=== PATIENT | female | born 1965 | race Caucasian/White ===

== ENCOUNTER 2018-01-19 18:26 | Emergency (ER) | payer OTHER ==
[2018-01-19 20:02] LABS: Urine Blood 1+ (NEG); Urine Glucose NEGATIVE (NEG); Urine Protein 2+ (NEG); Urine Specific Gravity 1.025 (1.005-1.030)
[2018-01-19 20:03] LABS: Absolute Lymphocytes (CBC) 1.1 K/uL (0.7-4.9); Absolute Monocytes 0.8 K/uL (0.1-1.3); Absolute Neutrophil 6.9 K/uL (1.8-8.0); Basophils % 0.3 % (0-1.3); Eosinophils % 0.5 % (0-4.4); Hematocrit 36.2 % (36.0-45.0); Lymphocytes % 12.8 % (15.3-44.8); MCH 26.6 pg (27.0-35.0); MCV 81.5 fL (80-100); MPV 8.3 fL (7.6-11.3); Monocytes % 8.8 % (3.3-12.3); RBC Red Blood Cell Count 4.45 M/uL (3.86-4.86)
[2018-01-19] MEDS ORDERED: ONDANSETRON 4 MG/2 ML VIAL ONE (20:04)
[2018-01-19] MEDS ORDERED: NA CHLORIDE 0.9% 1,000 ML ONE (20:04)
[2018-01-19] MEDS ORDERED: MORPHINE 4 MG/ML SYR ONE (20:04)
[2018-01-19 20:21] LABS: Urine Bacteria <20 /HPF (<20); Urine Culture Reflex Order REFLEXED
[2018-01-19 20:22] LABS: Albumin 3.1 g/dL (3.4-5.0); Bilirubin Direct 0.1 mg/dL (0-0.2); Bilirubin Total 0.3 mg/dL (0.2-1.0); Potassium 4.1 mmol/L (3.5-5.1); Protein, Total 7.3 g/dL (6.4-8.2)
--- NOTE | 2018-01-19 20:58 | RAD REPORT ---
EXAM DESCRIPTION: CT - Abdomen Pelvis W Contrast - 01/19/2018 8:51 pm CLINICAL HISTORY: Abdominal pain/dysuria COMPARISON: none. TECHNIQUE: Computed axial tomography of the abdomen pelvis was obtained. 100 cc Isovue-300 was admin istered intravenously. Oral contrast was not requested which limits evaluation of bowel. All CT scans are performed using dose optimization technique as appropriate and may include automated exposure control or mA/KV adjustment according to patient size. FINDINGS: The liver has a diminished attenuation consistent with fatty infiltration. The spleen, pancreas, adrenals and left kidney appear unremarkable. Low-density areas are present within the right kidney reaching the periphery. Hydronephrosis is not n oted. The appendix is normal. There is no evidence of diverticulitis. A hysterectomy has been performed. A small periumbilical hernia is present. The gallbladder has been removed IMPRESSION: Low-density areas within the right kidney probably indicating pyelonephritis.
--- NOTE | 2018-01-19 21:39 | ER ---
Nurse's Notes [facility] Name: Dianh Mike Age: 52 yrs Sex: Female : 1965 Arrival Date: 01/19/2018 Time: 18:30 Bed 20 Private MD: Navjot Schultz Diagnosis: Right Pyelonephritis Presentation: 01/19 18:53 Presenting complaint: Patient states: Fever for 2 days, DX with kidney infection aj yesterday by PCP, given rocephin IM and cipro PO. Transition of care: patient was not received from another setting of care. Onset of symptoms was January 17, 2018. Risk Assessment: Do you want to hurt yourself or someone else? Patient reports no desire to harm self or others. Initial Sepsis Screen: Does the patient meet any 2 criteria? No. Patient's initial sepsis screen is negative. Does the patient have a suspected source of infection? Yes:. Care prior to arrival: None. 18:53 Method Of Arrival: Ambulatory aj 18:53 Acuity: DAYAMI 3 aj Triage Assessment: 18:57 General: Appears in no apparent distress. uncomfortable, obese, Behavior is calm, aj cooperative, appropriate for age. Pain: Complains of pain in low back area and mid back area. Neuro: Level of Consciousness is awake, alert, obeys commands, Oriented to person, place, time, situation, Appropriate for age. Respiratory: Airway is patent Respiratory effort is even, unlabored, Respiratory pattern is regular, symmetrical. : Reports burning with urination, pain in lower back. Derm: Skin is flushed. Musculoskeletal: Circulation, motion, and sensation intact. Range of motion: intact in all extremities. 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 - Social history:: Smoking status: Patient/guardian denies using tobacco. - Ebola Screening: : Patient negative for fever greater than or equal to 101.5 degrees Fahrenheit, and additional compatible Ebola Virus Disease symptoms Patient denies exposure to infectious person Patient denies travel to an Ebola-affected area in the 21 days before illness onset No symptoms or risks identified at this time. Screenin:28 Abuse screen: Denies threats or abuse. Denies injuries from another. Nutritional bs1 screening: No deficits noted. Tuberculosis screening: No symptoms or risk factors identified. Fall Risk None identified. Assessment: 19:00 General: Appears uncomfortable, ill, obese, Behavior is cooperative, anxious. bs1 19:00 Pain: Complains of pain in right flank. Neuro: Level of Consciousness is awake, alert, bs1 obeys commands, Oriented to person, place, time, situation, Appropriate for age Facial symmetry appears normal. Cardiovascular: Denies chest pain, Heart tones S1 S2 present Capillary refill < 3 seconds Patient's skin is warm and dry. Respiratory: Reports shortness of breath at rest on exertion Airway is patent Trachea midline Respiratory effort is even, unlabored, Respiratory pattern is regular, symmetrical, Breath sounds are clear bilaterally. GI: Abdomen is round Bowel sounds present X 4 quads. : CVA tenderness noted on right Reports burning with urination, pain in right flank(s), foul smelling urine. EENT: No signs and/or symptoms were reported regarding the EENT system. Derm: Skin is intact. Musculoskeletal: Circulation, motion, and sensation intact. Capillary refill < 3 seconds. 20:15 Reassessment: Patient appears in no apparent distress at this time. Patient and/or bs1 family updated on plan of care and expected duration. Pain level reassessed. Patient is alert, oriented x 3, equal unlabored respirations, skin warm/dry/pink. Informed patient/family on POC/pending blood work/results. 22:00 Reassessment: Patient appears in no apparent distress at this time. Patient and/or bs1 family updated on plan of care and expected duration. Pain level reassessed. Patient is alert, oriented x 3, equal unlabored respirations, skin warm/dry/pink. Instructed on discharge instructions. Patient/family state understanding of discharge instructions. Vital Signs: 18:57 BP 134 / 72; Pulse 105; Resp 20; Temp 99.3; Pulse Ox 95% on R/A; Weight 113.4 kg; aj Height 5 ft. 7 in. (170.18 cm); 19:30 BP 117 / 50; Pulse 83; Resp 18 S; Pulse Ox 96% on R/A; bs1 20:15 BP 123 / 60; Pulse 81; Resp 17 S; Pulse Ox 94% on R/A; bs1 21:00 BP 137 / 74; Pulse 76; Resp 18 S; Pulse Ox 96% on R/A; bs1 21:45 BP 128 / 82; Pulse 88; Resp 18 S; Temp 98.8(O); Pulse Ox 96% on R/A; bs1 18:57 Body Mass Index 39.16 (113.40 kg, 170.18 cm) aj ED Course: 18:30 Patient arrived in ED. mr 18:30 Navjot Schultz MD is Private Physician. mr 18:54 Triage completed. aj 18:57 Arm band placed on right wrist. Patient placed in an exam room. aj 19:00 Jenna Ramos, BARRIE is Primary Nurse. bs1 19:04 Roe Phillips NP is PHCP. pm1 19:28 Patient has correct armband on for positive identification. Bed in low position. Pulse bs1 ox on. NIBP on. 19:43 Josue Hu MD is Attending Physician. pm1 19:57 Radiology exam delayed due to lab results not completed at this time. (BUN/Creatinine). nj 20:11 No provider procedures requiring assistance completed. Inserted saline lock: 22 gauge mg2 in right forearm, using aseptic technique. Blood collected. 20:37 CT completed. Patient tolerated procedure well. Patient moved to CT via wheelchair. Patient moved back from CT. 20:50 CT Abd/Pelvis - W/Contrast In Process Unspecified. EDMS 21:38 Navjot Schultz MD is Referral Physician. pm1 22:05 IV discontinued, bleeding controlled, No redness/swelling at site. Pressure dressing bs1 applied. Administered Medications: 20:10 Drug: Zofran 4 mg Route: IVP; Site: right antecubital; mg2 22:08 Follow up: Response: No adverse reaction bs1 20:11 Drug: NS 0.9% 1000 ml Route: IV; Rate: 1000 ml; Site: right antecubital; mg2 22:08 Follow up: IV Status: Completed infusion bs1 20:11 Drug: morphine 4 mg Route: IVP; Site: right antecubital; mg2 22:08 Follow up: Response: No adverse reaction bs1 21:56 Drug: Rocephin 1 grams Route: IV; Rate: calculated rate; Site: right forearm; bs1 22:08 Follow up: IV Status: Completed infusion bs1 Outcome: 21:39 Discharge ordered by MD. pm1 22:05 Discharged to home ambulatory, with family. bs1 22:05 Condition: stable 22:05 Discharge instructions given to patient, family, Instructed on discharge instructions, follow up and referral plans. medication usage, Demonstrated understanding of instructions, follow-up care, medications, Prescriptions given X 1. 22:09 Patient left the ED. bs1 Signatures: Dispatcher [employer] EDMS Rayna Julien RN RN aj Rivera, Maria mr Dago, Roe Gurrola, ANALYST GEOCHEMICAL PROSPECTING ANALYST GEOCHEMICAL PROSPECTING pm1 Kole Smalls Brittany, RN RN bs1 Parish Barriga RN RN mg2
--- NOTE | 2018-01-19 21:39 | EDPHYS ---
Physician Documentation [facility] Name: Dinah Mike Age: 52 yrs Sex: Female : 1965 Arrival Date: 01/19/2018 Time: 18:30 Bed 20 Private MD: Navjot Schultz ED Physician Josue Hu HPI: 01/19 20:00 This 52 yrs old Female presents to ER via Ambulatory with complaints of Back pm1 Pain, Fever. 20:00 The patient presents with pain that is acute. The symptoms are located in the right low pm1 back. Onset: The symptoms/episode began/occurred 1 week(s) ago. The pain does not radiate. Associated signs and symptoms: Pertinent positives: dysuria, fever. The problem was sustained Dx with UTI yesterday. Modifying factors: The patient symptoms are alleviated by nothing, the patient symptoms are aggravated by movement. Severity of symptoms: in the emergency department the symptoms are actually worse. The patient has not experienced similar symptoms in the past. The patient has been recently seen by a physician: the patient's primary care provider, yesterday, with similar presenting complaints, and apparently given a diagnosis of UTI, urine collected and prescribed Cipro. Given Rocephin IM in office. patient with fever for the past two days. 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 - Social history:: Smoking status: Patient/guardian denies using tobacco. - Ebola Screening: : Patient negative for fever greater than or equal to 101.5 degrees Fahrenheit, and additional compatible Ebola Virus Disease symptoms Patient denies exposure to infectious person Patient denies travel to an Ebola-affected area in the 21 days before illness onset No symptoms or risks identified at this time. ROS: 20:00 Eyes: Negative for injury, pain, redness, and discharge, ENT: Negative for injury, pm1 pain, and discharge, Neck: Negative for injury, pain, and swelling, Cardiovascular: Negative for chest pain, palpitations, and edema, Respiratory: Negative for shortness of breath, cough, wheezing, and pleuritic chest pain, Abdomen/GI: Negative for abdominal pain, nausea, vomiting, diarrhea, and constipation. 20:00 MS/Extremity: Negative for injury and deformity, Skin: Negative for injury, rash, and discoloration, Neuro: Negative for headache, weakness, numbness, tingling, and seizure. 20:00 Constitutional: Positive for fever, Negative for poor PO intake. 20:00 Back: Positive for flank pain, on the right. 20:00 : Positive for urinary symptoms. Exam: 20:00 Constitutional: This is a well developed, well nourished patient who is awake, alert, pm1 and in no acute distress. Head/Face: Normocephalic, atraumatic. Eyes: Pupils equal round and reactive to light, extra-ocular motions intact. Lids and lashes normal. Conjunctiva and sclera are non-icteric and not injected. Cornea within normal limits. Periorbital areas with no swelling, redness, or edema. ENT: Nares patent. No nasal discharge, no septal abnormalities noted. Tympanic membranes are normal and external auditory canals are clear. Oropharynx with no redness, swelling, or masses, exudates, or evidence of obstruction, uvula midline. Mucous membranes moist. Neck: Trachea midline, no thyromegaly or masses palpated, and no cervical lymphadenopathy. Supple, full range of motion without nuchal rigidity, or vertebral point tenderness. No Meningismus. Chest/axilla: Normal chest wall appearance and motion. Nontender with no deformity. No lesions are appreciated. Cardiovascular: Regular rate and rhythm with a normal S1 and S2. No gallops, murmurs, or rubs. Normal PMI, no JVD. No pulse deficits. Respiratory: Lungs have equal breath sounds bilaterally, clear to auscultation and percussion. No rales, rhonchi or wheezes noted. No increased work of breathing, no retractions or nasal flaring. Abdomen/GI: Soft, non-tender, with normal bowel sounds. No distension or tympany. No guarding or rebound. No evidence of tenderness throughout. 20:00 Skin: Warm, dry with normal turgor. Normal color with no rashes, no lesions, and no evidence of cellulitis. MS/ Extremity: Pulses equal, no cyanosis. Neurovascular intact. Full, normal range of motion. 20:00 Back: CVA tenderness, that is moderate, is noted on the right. 20:00 Neuro: Orientation: is normal, Motor: is normal, moves all fours, Sensation: is normal, no obvious gross deficits, Gait: is steady, at a normal pace, without difficulty. Vital Signs: 18:57 BP 134 / 72; Pulse 105; Resp 20; Temp 99.3; Pulse Ox 95% on R/A; Weight 113.4 kg; aj Height 5 ft. 7 in. (170.18 cm); 19:30 BP 117 / 50; Pulse 83; Resp 18 S; Pulse Ox 96% on R/A; bs1 20:15 BP 123 / 60; Pulse 81; Resp 17 S; Pulse Ox 94% on R/A; bs1 21:00 BP 137 / 74; Pulse 76; Resp 18 S; Pulse Ox 96% on R/A; bs1 21:45 BP 128 / 82; Pulse 88; Resp 18 S; Temp 98.8(O); Pulse Ox 96% on R/A; bs1 18:57 Body Mass Index 39.16 (113.40 kg, 170.18 cm) aj MDM: 19:04 Patient medically screened. pm1 21:38 Data reviewed: vital signs. Data interpreted: Pulse oximetry: on room air is 95 %. pm1 Interpretation: normal. Counseling: I had a detailed discussion with the patient and/or guardian regarding: the historical points, exam findings, and any diagnostic results supporting the discharge/admit diagnosis, lab results, radiology results, the need for outpatient follow up, to return to the emergency department if symptoms worsen or persist or if there are any questions or concerns that arise at home. 01/19 19:12 Order name: Urine Dipstick--Ancillary (enter results); Complete Time: 21:00 mt 01/19 19:42 Order name: Basic Metabolic Panel; Complete Time: 21:00 pm1 01/19 19:42 Order name: CBC with Diff; Complete Time: 21:00 pm1 01/19 19:42 Order name: Hepatic Function; Complete Time: 21:00 pm1 01/19 19:42 Order name: Lipase; Complete Time: 21:00 pm1 01/19 19:42 Order name: Urine Microscopic Only; Complete Time: 21:00 pm1 01/19 19:42 Order name: IV Saline Lock; Complete Time: 20:11 pm1 01/19 19:42 Order name: Labs collected and sent; Complete Time: 20:11 pm1 01/19 19:42 Order name: CT Abd/Pelvis - W/Contrast; Complete Time: 21:00 pm1 01/19 20:22 Order name: Urine Culture EDMS 01/19 19:42 Order name: Urine Test (obtain specimen); Complete Time: 20:11 pm1 Administered Medications: 20:10 Drug: Zofran 4 mg Route: IVP; Site: right antecubital; mg2 22:08 Follow up: Response: No adverse reaction bs1 20:11 Drug: NS 0.9% 1000 ml Route: IV; Rate: 1000 ml; Site: right antecubital; mg2 22:08 Follow up: IV Status: Completed infusion bs1 20:11 Drug: morphine 4 mg Route: IVP; Site: right antecubital; mg2 22:08 Follow up: Response: No adverse reaction bs1 21:56 Drug: Rocephin 1 grams Route: IV; Rate: calculated rate; Site: right forearm; bs1 22:08 Follow up: IV Status: Completed infusion bs1 Disposition: 01/20 19:44 Co-signature as Attending Physician, Josue Hu MD. Disposition: 01/19/18 21:39 Discharged to Home. Impression: Right Pyelonephritis. - Condition is Stable. - Discharge Instructions: Pyelonephritis, Adult. - Prescriptions for Tylenol- Codeine #3 300-30 mg Oral Tablet - take 2 tablets by ORAL route every 6 hours As needed; 20 tablet. - Medication Reconciliation Form, Thank You Letter, Antibiotic Education, Prescription Opioid Use form. - Follow up: Emergency Department; When: As needed; Reason: Worsening of condition. Follow up: Navjot Schultz MD; When: 2 - 3 days; Reason: Recheck today's complaints, Continuance of care, Re-evaluation by your physician. - Problem is new. - Symptoms have improved. - Notes: Continue taking the cipro prescribed to you by your PCP. A culture of your urine is pending. Signatures: Dispatcher [employer] Rayna Brewer, RN RN Roe Arvizu, COOPERER COOPERER pm1 Josue Hu MD MD gs Salazar, Brittany, RN RN bs1 Parish Barriga RN RN mg2 Corrections: (The following items were deleted from the chart) 01/19 22:09 21:39 01/19/2018 21:39 Discharged to Home. Impression: Right Pyelonephritis. Condition bs1 is Stable. Forms are Medication Reconciliation Form, Thank You Letter, Antibiotic Education, Prescription Opioid Use. Follow up: Emergency Department; When: As needed; Reason: Worsening of condition. Follow up: Navjot Schultz; When: 2 - 3 days; Reason: Recheck today's complaints, Continuance of care, Re-evaluation by your physician. Problem is new. Symptoms have improved. pm1
[2018-01-19] MEDS ORDERED: CEFTRIAXONE/SWI 1gm 1 GM/10 ML SYR ONE (21:53)
== END 2018-01-19 22:09 | disposition home or self-care (01) ==
LOC: ER 18:26
DX: N12 Tubulo-interstitial nephritis, not specified as acute or chronic (principal); I10 Essential (primary) hypertension; Z88.1 Allergy status to other antibiotic agents
CPT/HCPCS: 36415; 74177; 80048; 80076; 81003; 81015; 83690; 85025; 87086; 87088; 99284; J0696; J2405; J7030; Q9967

== ENCOUNTER 2025-01-09 07:55 | Day surgery (SDC) | payer OTHER ==
[2025-01-05 11:38] LABS: Sqamous Epithelial <5 /HPF (None Seen); Urine Culture Reflex Order REFLEXED; Urine Microscopic Reflex YN ORDER UMIC
--- NOTE | 2025-01-05 11:56 | RAD REPORT ---
EXAM: Chest Pa And Lat (2 Views) HISTORY: 59 years Female PRE OP COMPARISON: 06/20/20 FINDINGS: LUNGS/PLEURA: The lungs are clear. No pleural effusions or pneumothorax. No pulmonary edema. CARDIAC/MEDIASTINUM: The cardiac silhouette is within normal limits. UPPER ABDOMEN: No significant abnormality. BONES: No acute abnormality. LINES/TUBES/OTHER: N/A IMPRESSION: No evidence of acute cardiopulmonary disease.
[2025-01-05 12:14] LABS: PT Prothrombin Time 14.7 SECONDS (10-13.0); PTT, Activated Partial Thromb 37.0 SECONDS (27.2-37.4); Protime INR 1.31
[2025-01-09] MEDS: LIDOCAINE 1% MPF 5 ML VIAL ONE (08:02)
[2025-01-09] MEDS: BUPIVACAINE 0.25% PF 30 ML VIAL ONE (08:02)
[2025-01-09] MEDS: FENTANYL CITR 100 MCG/2 ML ONE (08:03)
[2025-01-09] MEDS: MIDAZOLAM HCL 2 MG/2 ML INJ ONE (08:03)
[2025-01-09] MEDS: EPINEPHRINE 1 MG/ML VIAL ONE (08:04)
[2025-01-09] MEDS ORDERED: MIDAZOLAM HCL 2 MG/2 ML INJ ONE (08:38)
[2025-01-09] MEDS: Ringers Lactate 1,000 ML IV ONE ×2 (08:40→11:32)
[2025-01-09] MEDS: CELECOXIB 100 MG CAPSULE ONE (08:42)
[2025-01-09] MEDS: ACETAMINOPHEN 500 MG TAB ONE (08:42)
[2025-01-09] MEDS: GABAPENTIN 100 MG CAP ONE (08:42)
[2025-01-09] MEDS: Oxycodone HCl/Acetaminophen 5/325 MG TAB ONE (08:42)
[2025-01-09] MEDS: MAGNESIUM SULFATE 1 gm IVPB 1 GM/100 ML BAG IV ONE (09:59)
[2025-01-09] MEDS: DEXMEDETOMIDINE HCL 200 MCG/2 ML VIAL ONE (09:59)
[2025-01-09] MEDS ORDERED: LIDOCAINE 2% MPF 5 ML VIAL ONE ×2 (10:18→10:25)
[2025-01-09] MEDS ORDERED: ONDANSETRON 4 MG/2 ML VIAL ONE (10:18)
[2025-01-09] MEDS ORDERED: FENTANYL CITR 100 MCG/2 ML ONE (10:18)
[2025-01-09] MEDS ORDERED: KETAMINE HCL IN 0.9 % NACL 50 MG/5 ML SYRINGE IV ONE (10:20)
[2025-01-09] MEDS ORDERED: LIDOCAINE 1% MPF 5 ML VIAL ONE (10:23)
[2025-01-09] MEDS: TRANEXAMIC ACID 1,000 MG/10 ML VIAL IV ONE (10:38)
[2025-01-09] MEDS: CEFAZOLIN SODIUM 2 GM/VIAL ONE (11:16)
[2025-01-09] MEDS ORDERED: EPHEDRINE SULF 50 MG/ML VIAL ONE (11:21)
[2025-01-09] MEDS ORDERED: GLYCOPYRROLATE 0.2 MG/ML SYR ONE (11:41)
[2025-01-09] MEDS ORDERED: ONDANSETRON 4 MG/2 ML VIAL IV PRN (13:27)
[2025-01-09] MEDS ORDERED: HYDROCODONE/APAP 7.5/325 MG TAB PO PRN (13:27)
[2025-01-09] MEDS ORDERED: DOCUSATE NA 100 MG CAP PO PRN (13:27)
--- NOTE | 2025-01-09 13:27 | P.BOP ---
Preoperative diagnosis: left knee severe arthritis Postoperative diagnosis: same Primary procedure: left knee total knee arthoplasty Estimated blood loss: 100ccs Anesthesia: General Transferred to: Recovery Room Condition: Good
[2025-01-09] MEDS: MORPHINE 2 MG/ML SYR ONE (14:24)
[2025-01-09] MEDS: HYDROMORPHONE HCL 0.5 MG/0.5 ML INJ ONE ×2 (14:34→14:40)
--- NOTE | 2025-01-09 14:54 | OP ---
Date of Procedure: 01/09/2025 Surgeon: Alexys Hoffman MD Preoperative Diagnosis: Severe left knee arthritis. Postoperative Diagnosis: Severe left knee arthritis. Procedure: Left total knee arthroplasty using the persona total knee system. Estimated Blood Loss: 100 cc. Complications: There were no complications. Indications For Operation: Ms. Mike is a 59-year-old female who has been troubled with severe pain in her left knee for quite some time. She is unfortunately started developing an increasing varus d eformity as well as both flexion and extension contractures. X-rays demonstrated severe [id number] changes, osteoarthritis, and risks, benefits, and alternatives have been discussed with her regardin g treatment. At this time, she opts for total knee arthroplasty and the risks, benefits, and alterna tives associated with this particular procedure again discussed. She states she understands things a s presented and wishes to proceed. Description Of Procedure: The patient obtained a block in the holding area, then taken to the operat ing room, where general anesthesia was easily obtained by the Anesthesia staff. Following this, a we ll-padded tourniquet was placed on superior left thigh. Left lower extremity was then prepped and dr aped usual sterile fashion for procedure. After this, the knee was examined. It does not come to fu ll extension, lacking a few degrees, also flexion was to approximately 90 degrees. Leg was then elev ated, but not exsanguinated and the knee was bent to maximal extent and tourniquet was raised. After this, a standard anterior incision was taken down carefully through skin and soft tissues. Meticulo us hemostasis being maintained using Bovie electrocautery. This leads down to the extensor mechanism . The appropriate level was developed to expose the extensor mechanism. The superior medial portion of the patella is marked and a standard medial parapatellar arthrotomy was then performed with liber ation of approximately 60 cc of rather normal-appearing synovial fluid. Immediately seen is severe a rthritis of the medial compartment as well as multiple osteophytes. The medial meniscus was excised and then the patella was then everted. The fat pad was removed to allow for better visualization. L ateral meniscus and anterior cruciate ligament were removed. There was a notch osteophyte which was partially cleared, which allowed for placement of the intramedullary drill for the intramedullary ali gnment guide, this was placed, flushed and a distal cut was then made, it was then sized. After this , the remainder of the femoral cuts are performed and the posterior cruciate ligament was excised dennis ng with any remnant of the lateral or medial meniscus. After this, attention was then turned to the tibia and the extramedullary guide was used to inspector government property appropriate varus valgus and was then pinned int o place. The tibia was then cut, it was sized and the trial was used with a size 10 poly. Does appe ar to come to full flexion. It appears that her varus has been a bit corrected and she does have fle xion to 120 degrees limited by habitus. Attention was then turned to the patella, which was calipere d and cut and trial patella was placed. It was then brought through full range of motion appears to glide excellently. The blood for the final femur are drilled and the tibia was then reamed and punch ed and surfaces were prepped for cementation. All of the components with the exception of the tibial polyethylene are then cemented in place with removal of any unsupported cement. A trial polyethylen e was used as the knee was held in extension while the patella was clamped and the cement was allowed to dry. Following drying of the cement, the knee was brought through range of motion. It was felt that the tendon is functioning well. Decision was made to proceed with the final 10 polyethylene. T he wound was copiously irrigated and the final polyethylene was then placed and clicked in. After th is, it was again irrigated. Any unsupported cement was removed. The knee was brought through full r amy of motion. The patella appears to glide excellently appears to be balanced. It comes to full e xtension. After this, the wound was irrigated and the extensor mechanism was closed in a watertight fashion using heavy Ethibond sutures. The wound was again irrigated and the skin was closed using Vi cryl sutures followed by morgan. The patient was then placed in a very well- padded sterile dressing, awakened, and taken to recovery room in good condition. There were no compl ications. SE/MODL Voice ID: [id number] Report ID: [id number]
[2025-01-09 15:08] VITALS: BMI 37.5
[2025-01-09 16:17] VITALS: O2SAT 97
[2025-01-09] MEDS: CEFAZOLIN 1 GM in NA CHLORIDE 0.9% 50 ML IVPB SCH (16:40)
[2025-01-09] MEDS ORDERED: ACETAMINOPHEN 325 MG TABLET PO PRN (16:46)
--- NOTE | 2025-01-09 16:53 | P.CNS ---
Date of Consult: 01/09/25 Reason for Consult: Medical management Requesting Physician: Alexys Hoffman Chief Complaint: Left knee osteoarthritis History of Present Illness: Patient is a 59-year-old female with a past medical history significant for Luis Alberto's syndrome, depression, hypertension, atrial fibrillation, insomnia, rheumatoid arthritis, class I obesity, GERD, hypothyroidism, RANULFO who presented for a left knee arthroplasty after outpatient conservative management measures failed. Patient tolerated the procedure and successfully the left knee arthroplasty. At time of assessment patient reported left knee pain as 7/10 severity and described pain as aching quality. Patient denies any other signs and symptoms. Symptoms are aggravated or relieved by nothing. [facility] group was consulted for medical management. - Past Medical/Surgical History Diabetic: No -: hypothyroid disease -: rheumatoid arthritis -: sjorgens -: afib -: RANULFO -: depression -: GERD -: TONSILECTOMY -: HERNIA REPAIR -: ANKLE SURGERY -: CHOLECYSTECTOMY -: HYSTERECTOMY -: TUMMY TUCK - Family History Mother Medical History: Cancer Notes: BREAST CANCER Father Medical History: Heart disease - Social History Smoking Status: Never smoker Alcohol use: No CD- Drugs: No Caffeine use: Yes Place of Residence: Home <Chandrika Florian - Last Filed: 01/09/25 20:50> <Kaushal Sanchez - Last Filed: 01/10/25 06:32> Allergies minocycline Allergy (Verified 01/05/25 10:46) SOFT TISSUE SLOUGHING Home Medications: Apixaban [Eliquis] 5 mg PO BID 01/05/25 Carbamazepine [Tegretol] 200 mg PO DAILY 01/05/25 Dexlansoprazole [Dexilant] 30 mg PO DAILY 01/05/25 Doxepin HCl [Sinequan] 10 mg PO BEDTIME 01/05/25 Escitalopram [Lexapro] 20 mg PO DAILY 01/05/25 Folic Acid 1 mg PO DAILY 01/05/25 Gabapentin 800 mg PO BID 01/05/25 Hydroxychloroquine Sulfate 200 mg PO BID 01/05/25 Levothyroxine Sodium 50 mcg PO DAILY 01/05/25 Losartan Potassium [Cozaar] 25 mg PO BEDTIME 01/05/25 Methotrexate Sodium/Pf [Methotrexate 50 mg/2 ml Vial] 25 mg IJ EVERY 7TH DAY 01/05/25 Metoprolol Tartrate 75 mg PO BID 01/05/25 buPROPion HCL [Bupropion Xl] 300 mg PO DAILY 01/05/25 Review of Systems General: Unremarkable Eyes: Unremarkable ENT: Unremarkable Respiratory: Unremarkable Cardiovascular: Unremarkable Gastrointestinal: Unremarkable Genitourinary: Unremarkable Musculoskeletal: Other (Left knee pain) Integumentary: Unremarkable Neurological: Unremarkable Lymphatics: Unremarkable <Chandrika Florian E - Last Filed: 01/09/25 20:50> Physical Examination Temp Pulse Resp BP Pulse Ox 97.7 F 77 15 115/55 L 97 01/09/25 16:00 01/09/25 16:00 01/09/25 16:00 01/09/25 16:00 01/09/25 16:00 General: Alert, In no apparent distress, Oriented x3, Cooperative HEENT: Atraumatic, PERRLA, Mucous membr. moist/pink, EOMI, Sclerae nonicteric Neck: Supple, 2+ carotid pulse no bruit, No LAD, Without JVD or thyroid abnormality Respiratory: Clear to auscultation bilaterally, Normal air movement Cardiovascular: No edema, Normal S1 S2, Irregular heart rate/rhythm Capillary refill: <2 Seconds Gastrointestinal: Normal bowel sounds, Soft and benign, No tenderness Musculoskeletal: No clubbing, Tenderness Integumentary: No rashes Neurological: Normal speech, Normal tone, Normal affect Lymphatics: No axilla or inguinal lymphadenopathy <JessmarkChandrika rascon E - Last Filed: 01/09/25 20:50> Temp Pulse Resp BP Pulse Ox 97.8 F 68 17 112/52 L 93 01/10/25 04:00 01/10/25 04:00 01/10/25 04:00 01/10/25 04:00 01/10/25 04:00 Laboratory Data (last 24 hrs) 01/10/25 01/10/25 01/09/25 04:15 04:15 21:42 WBC 12.70 H 12.20 H Hgb 10.3 L 10.9 L Hct 30.7 L 33.3 L Plt Count 203 207 Sodium 139 Potassium 4.4 BUN 16 Creatinine 0.77 Glucose 136 H Phosphorus Magnesium Total Bilirubin AST ALT Alkaline Phosphatase 01/09/25 21:42 WBC Hgb Hct Plt Count Sodium 139 Potassium 4.3 BUN 18 Creatinine 0.98 Glucose 149 H Phosphorus 2.2 L Magnesium 2.2 Total Bilirubin 0.2 AST 19 ALT 16 Alkaline Phosphatase 75 <Kaushal Sanchez - Last Filed: 01/10/25 06:32> Conclusions/Impression: Left knee osteoarthritis. --Status post left knee arthroplasty --Continue current pain medication regimen. History of Luis Alberto's syndrome --Continue supportive care Depression\Insomnia\Rheumatoid arthritis\GERD\hypothyroidism --Continue home medications Paroxysmal atrial fibrillation --Continue Eliquis when appropriate. Class I obesity. --Likely secondary to excess calories intake. --Patient counseled on weight reduction, diet and exercise therapy. Hypertension --Stable. --Continue home medications RANULFO. --Continue supportive care. DVT prophylaxis with Lovenox subQ Physician Review: Patient Assessed, Agree with Above Assessment and Plan Critical Care: No <Chandrika Florian - Last Filed: 01/09/25 20:50> Physician Review: Patient Assessed, Agree with Above Assessment and Plan <Kaushal Sanchez - Last Filed: 01/10/25 06:32>
[2025-01-09] MEDS: HYDROCODONE/APAP 7.5/325 MG TAB PO PRN (17:04)
[2025-01-09] MEDS ORDERED: HYDRALAZINE HCL 20 MG/ML VIAL IV PRN (20:58)
[2025-01-09] MEDS ORDERED: HOME MED 1 EA UNK (Metoprolol Tartrate [Metoprolol Tartrate] 75 MG Tablet) PO SCH (21:00)
[2025-01-09] MEDS: HOME MED 1 EA UNK (Gabapentin [Gabapentin] 800 MG Tablet) PO SCH (21:00)
[2025-01-09] MEDS ORDERED: HOME MED 1 EA UNK (Gabapentin [Gabapentin] 800 MG Tablet) PO SCH (21:00)
[2025-01-09] MEDS: HYDROXYCHLOROQUINE 200MG TAB PO SCH (21:33)
[2025-01-09] MEDS: METOPROLOL TAR 25 MG TAB PO SCH (21:33)
[2025-01-09] MEDS: DOXEPIN HCL 10 MG CAP PO SCH (21:34)
[2025-01-09 22:33] LABS: Absolute Lymphocytes (CBC) 0.7 K/uL (0.7-4.9); Hematocrit 33.3 % (36.0-45.0); Hemoglobin 10.9 g/dL (12.0-15.0); MCH 26.8 pg (27.0-35.0); MCHC 32.7 g/dL (32.0-36.0); MCV 82.1 fL (80-100); MPV 8.5 fL (7.6-11.3); Nucleated RBC Absolute Count 0.0 (0-0); Nucleated Red Blood Cells % 0.0 % (0-0); RBC Red Blood Cell Count 4.05 M/uL (3.86-4.86); White Blood Count 12.20 thou/uL (4.3-10.9)
[2025-01-09 22:50] LABS: ALT/SGPT 16.0 U/L (13-56); AST/SGOT 19.0 U/L (15-37); Albumin 3.1 g/dL (3.4-5.0); Albumin/Globulin Ratio 1.0 (1.1-1.8); Alkaline Phosphatase 75.0 U/L (45-117); Anion Gap 9.3 mEq/L (5.0-15.0); BUN Blood Urea Nitrogen 18.0 mg/dL (7-18); Globulin 3.1 g/dL (2.3-3.5); Glucose Level 149.0 mg/dL (74-106); Magnesium 2.2 mg/dL (1.6-2.4); Potassium 4.3 mEq/L (3.5-5.1)
[2025-01-09 23:31] LABS: Differential Total Cells Count 100; Segmented Neutrophils 78 % (40-80)
[2025-01-09 23:32] LABS: Blood Morphology Comment NOT SEEN (NOT SEEN)
[2025-01-10 05:05] LABS: Absolute Lymphocytes (CBC) 1.7 K/uL (0.7-4.9); Hematocrit 30.7 % (36.0-45.0); Hemoglobin 10.3 g/dL (12.0-15.0); MCH 27.4 pg (27.0-35.0); MCHC 33.4 g/dL (32.0-36.0); MCV 82.0 fL (80-100); MPV 8.6 fL (7.6-11.3); Nucleated RBC Absolute Count 0.0 (0-0); Nucleated Red Blood Cells % 0.0 % (0-0); RBC Red Blood Cell Count 3.74 M/uL (3.86-4.86); White Blood Count 12.70 thou/uL (4.3-10.9)
[2025-01-10 05:27] LABS: Anion Gap 8.4 mEq/L (5.0-15.0); BUN Blood Urea Nitrogen 16.0 mg/dL (7-18); Glucose Level 136.0 mg/dL (74-106); Potassium 4.4 mEq/L (3.5-5.1)
[2025-01-10] MEDS: LEVOTHYROXINE SOD 0.05 MG TABLET PO SCH (06:04)
[2025-01-10] MEDS: ENOXAPARIN 30 MG/0.3 ML SQ SCH (06:04)
[2025-01-10] MEDS: SODIUM PHOSPHATE 15 MM in NA CHLORIDE 0.9% 250 ML IV ONE (08:00)
[2025-01-10] MEDS: FOLIC ACID 1 MG TABLET PO SCH (08:17)
[2025-01-10] MEDS: carBAMazepine 200 MG TAB PO SCH (08:17)
[2025-01-10] MEDS: PANTOPRAZOLE 40MG TABLET PO SCH (08:18)
[2025-01-10] MEDS: BUPROPION HCL XL 150 MG TAB PO SCH (08:18)
[2025-01-10] MEDS: ESCITALOPRAM 20 MG TAB PO SCH (08:18)
[2025-01-10 08:19] VITALS: BP 124/57
[2025-01-10 08:57] VITALS: TEMP 98.1
[2025-01-10] MEDS ORDERED: HOME MED 1 EA UNK (Dexlansoprazole [Dexilant] 30 MG Cap.Dr.Bp) PO SCH (09:00)
[2025-01-10] MEDS ORDERED: HOME MED 1 EA UNK (Bupropion Hcl [Bupropion Xl] 300 MG Tab.Er.24h) PO SCH (09:00)
--- NOTE | 2025-01-10 14:37 | P.PN ---
Subjective Date of Service: 01/10/25 Chief Complaint: Left knee osteoarthritis Subjective: Improving <Chandrika Florian - Last Filed: 01/10/25 20:00> Date of Service: 01/11/25 <Kaushal Sanchez - Last Filed: 01/11/25 06:44> Review of Systems General: Unremarkable Eyes: Unremarkable ENT: Unremarkable Respiratory: Unremarkable Cardiovascular: Unremarkable Gastrointestinal: Unremarkable Musculoskeletal: Other (Left knee pain) Integumentary: Unremarkable Neurological: Unremarkable Lymphatics: Unremarkable <Chandrika Florian - Last Filed: 01/10/25 20:00> Physical Examination - Vital Signs Temperature: 98.1 F Blood Pressure: 124/57 Pulse: 67 Respirations: 16 Pulse Ox (%): 98 - Physical Exam General: Alert, In no apparent distress, Oriented x3 HEENT: Atraumatic, PERRLA, EOMI Neck: Supple, JVD not distended Respiratory: Clear to auscultation bilaterally, Normal air movement Cardiovascular: No edema, Regular rate/rhythm, Normal S1 S2 Capillary refill: <2 Seconds Gastrointestinal: Normal bowel sounds, No tenderness Musculoskeletal: No clubbing, No tenderness Integumentary: No rashes, Other (Left knee incision) Neurological: Normal speech, Normal tone, Normal affect Lymphatics: No axilla or inguinal lymphadenopathy - Studies Laboratory Data (last 24 hrs) 01/10/25 01/10/25 01/09/25 04:15 04:15 21:42 WBC 12.70 H 12.20 H Hgb 10.3 L 10.9 L Hct 30.7 L 33.3 L Plt Count 203 207 Sodium 139 Potassium 4.4 BUN 16 Creatinine 0.77 Glucose 136 H Phosphorus Magnesium Total Bilirubin AST ALT Alkaline Phosphatase 01/09/25 21:42 WBC Hgb Hct Plt Count Sodium 139 Potassium 4.3 BUN 18 Creatinine 0.98 Glucose 149 H Phosphorus 2.2 L Magnesium 2.2 Total Bilirubin 0.2 AST 19 ALT 16 Alkaline Phosphatase 75 <Chandrika Florian - Last Filed: 01/10/25 20:00> Assessment And Plan - Plan Interval history. 01/10/2025. Patient seen at bedside. Patient reports that left knee pain is well-managed with current pain medication regimen. Patient accepted to [facility]. Patient to be discharged by orthopedic surgeon. Fall precautions. Continue supportive care. Left knee osteoarthritis. --Status post left knee arthroplasty --Continue current pain medication regimen. History of Luis Alberto's syndrome --Continue supportive care Depression\Insomnia\Rheumatoid arthritis\GERD\hypothyroidism --Continue home medications Paroxysmal atrial fibrillation --Continue Eliquis when appropriate. Class I obesity. --Likely secondary to excess calories intake. --Patient counseled on weight reduction, diet and exercise therapy. Hypertension --Stable. --Continue home medications RANULFO. --Continue supportive care. DVT prophylaxis with Lovenox subQ Physician Review: Patient Assessed, Agree with Above Assessment and Plan Critical Care: No Discharge Plan: Home Plan to discharge in: 24 Hours - Code Status/Comfort Care Code Status Assessed: Yes Physician Review: Patient Assessed, Agree with Above Assessment and Plan Critical Care: No <Chandrika Florian - Last Filed: 01/10/25 20:00> Physician Review: Patient Assessed, Agree with Above Assessment and Plan <Kaushal Sanchez - Last Filed: 01/11/25 06:44>
[2025-01-16] MEDS ORDERED: METHOTREXATE 50 MG/2 ML MDV IJ SCH (09:00)
== END 2025-01-10 10:04 | disposition home health service (06) ==
LOC: OR 07:55 → 2ND 13:27 → OR 01-10 10:04
PROVIDERS: ATTEND Orthopaedic Surgery
PROC: 0SRD0J9 Replacement of Left Knee Joint with Synthetic Substitute, Cemented, Open Approach (ICD-10-PCS; principal; 2025-01-09 10:30)
DX: M17.12 Unilateral primary osteoarthritis, left knee (principal); F32.A Depression, unspecified; I10 Essential (primary) hypertension; I48.11 Longstanding persistent atrial fibrillation; G47.00 Insomnia, unspecified; M06.9 Rheumatoid arthritis, unspecified; E66.9 Obesity, unspecified; K21.9 Gastro-esophageal reflux disease without esophagitis; E03.9 Hypothyroidism, unspecified; G47.33 Obstructive sleep apnea (adult) (pediatric); M02.30 Reiter's disease, unspecified site; Z68.37 Body mass index [BMI] 37.0-37.9, adult
CPT/HCPCS: 87088; 85025; 81001; 87086; 36415 ×2; 83735; 84100; 85610; 88305; 88311; 85730; 87077; 87186; 80053; 71046; 97139; 94010 ×2; 27447; J3490; C1776 ×2; J3475; J2704; J1100; J2003 ×4; J2250 ×2; J3010; J2270; J0171; J1171 ×2; J2405; J7120 ×2; J0690; 80048; 97116; 97161; 97530; J1650; J7050